=== PATIENT | female | born 1950 | race Caucasian/White ===

== ENCOUNTER 2017-01-31 06:43 | Day surgery (SDC) | payer OTHER, BC ==
[2017-01-31] VITALS (7 sets, daily range): BP systolic 83–123; BP diastolic 53–69; PULSE 67–81; RESP 13–20; TEMP 96.9–98.5; O2SAT 95–100; Ht 170.2 cm; Wt 75.3 kg
[~2017-01-31] VITALS: Ht 170.2 cm; Wt 75.3 kg
[~2017-01-31 06:43] MED LIST: ALLO100T PO; ASCO-296 PO; ASPI-558 PO; CETI10CA19 PO; CYAN250014 PO; DULA1.5P SQ; LEVO75TA10 PO; LIDOCAINE 1% (10mg/ml) 2ml SDV INJ ONE; LINA5TAB PO; LISI1TAB11 PO; LR 1,000 ML IV SCH; NEBI5TAB2 PO; OMEP20TA11 PO; PRAV40TA46 PO; PYRI100T61 PO
--- NOTE | 2017-01-31 07:19 | ANESPREOP ---
Anesthesia Record Date and Time DATE: 01/31/17 TIME: 07:18 Proposed Surgical Procedure COLNOSCOPY NPO since: mn Allergies: Coded Allergies: Sulfa (Sulfonamide Antibiotics) (Verified Allergy, Unknown, 12/29/08) Ht/Wt/BMI Height: 5 ' 7.00 " Weight: 75.300 kg BMI: 26.0 kg/m2 Vital Signs Date Time Temp Pulse Resp B/P Pulse Ox O2 Delivery O2 Flow Rate FiO2 01/31/17 06:59 98.5 81 13 123/69 95 Room Air Medications Inpatient Medications Current Medications Medications (Trade) Dose Ordered Sig/Ke Start Time Stop Time Status Last Admin Dose Admin Lactated Ringer's (Lactated Ringers) 1,000 ml @ 50 mls/hr Q20H 01/31/17 06:00 Allopurinol (Allopurinol) 100 Mg Tablet, 1 TAB PO DAILY, (Reported) Ascorbic Acid (Vitamin C) 500 Mg Tablet, 500 MG PO DAILY, (Reported) Aspirin (Aspir 81) 81 Mg Tablet.dr, 81 MG PO DAILY, (Reported) Cetirizine HCl (Zyrtec) 10 Mg Capsule, 1 CAP PO DAILY, (Reported) Cyanocobalamin (Vitamin B-12) (Vitamin B12) 2,500 Mcg Tab.chew, 1 TAB PO DAILY, (Reported) Dulaglutide (Trulicity) 1.5 Mg/0.5 Ml Pen.injctr, 1 DOSE SQ 1 WEEK, (Reported) Levothyroxine Sodium (Levothyroxine Sodium) 75 Mcg Tablet, 75 MCG PO ACB, ( Reported) Once daily before breakfast. Linagliptin (Tradjenta) 5 Mg Tablet, 1 TAB PO DAILY, (Reported) Lisinopril/Hydrochlorothiazide (Lisinopril-Hctz 20-12.5 mg Tab) 1 Each Tablet, 1 TAB PO DAILY, (Reported) Nebivolol Hcl (Bystolic) 5 Mg Tablet, 5 MG PO DAILY, (Reported) Omeprazole Magnesium (Prilosec Otc) 20 Mg Tablet.dr, 40 MG PO DAILY, (Reported) Pravastatin Sodium (Pravastatin Sodium) 40 Mg Tablet, 40 MG PO DAILY, (Reported) Pyridoxine Hcl (Vitamin B-6) 100 Mg Tablet, 100 MG PO DAILY, (Reported) Discontinued Medications Levothyroxine Sodium (Synthroid) 88 Mcg Tablet, 88 MCG PO DAILY, (Reported) Lisinopril (Lisinopril) 10 Mg Tablet, 12.5 MG PO BID, (Reported) Currently on Beta Jennifer: Yes Beta Jennifer Last Taken: 01/30/17 @ 1999 Medical/Surgical History Anesthesia PMH: Reports: *Diabetes (TYPE 2), *Hypertension, Anesthesia Reactions (NAUSEA), Arthritis (FINGERS), 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29), Reflux (TAKES PRILOSEC), Thyroid Disease (HYPOTHYROID) Smoking Status: Never smoker Use Chewing Tobacco?: No Second Hand Exposure: No Substance Use Type: does not use Alcohol Intake: none HX of Last Menstrual Period: HYST Past Surgical History Orthopedic Surgeries: Yes - NAYA CTR; ULNAR NERVE TRANSPOSITION NAYA Abdominal Surgeries: Yes - OPEN GAURAV; APPY Genitourinary Surgeries: No Cardiac Surgeries: No Endocrine Surgeries: No Reproductive Surgeries: Yes - D&C x2, LOU/BSO; HYSTEROSCOPY Neurological Surgeries: No Ear Surgeries: No Nose Surgeries: No Throat Surgeries: No Other Surgeries: Yes - ORAL, IMBEDDED TEETH REMOVED, NODULE REMOVED FROM THUMB; EGD/ COLONOSCOPY Anesthesia Adverse Reactions: FOUND nausea and vomiting Family Hx of Anesthesia Advers: none Hx of Motion Sickness: No Physical Exam Respiratory: Bilat breath sounds equal, Lungs clear Cardiovascular: FOUND Regular rate, rhythm Airway Assessment Mallampati Score: II TMD: 3 Fingerbreadths Neck Extension: Good Overall Assessment: No Airway Concerns ASA: 2 Plan Anesthesia Plan: TIVA, GETA Discussion Discussed risks/options/alternatives of anesthesia and questions answered. Patient consents. Nursing pain assessment noted. Attestation Statement Prior to the delivery of any anesthetic medication, I examined the patient, developed the plan, obtained the patient's consent and discussed the risk and benefits of the procedure with the patient/guardian. ZENON HAAS CRNA January 31, 2017 07:19
[2017-01-31] MEDS ORDERED: CALC1TAB PO (07:21)
[2017-01-31] MEDS ORDERED: SCOPOLAMINE 1.5 MG PATCH TD ONE (07:30)
[2017-01-31] MEDS ORDERED: PROPOFOL 500mg 50 ML IV ONE (08:55)
[2017-01-31] MEDS ORDERED: PROPOFOL 200mg 20 ML IV ONE (09:24)
--- NOTE | 2017-01-31 09:35 | GSPOSTPROC ---
Immediate Operative Note DATE: 01/31/17 TIME: 09:34 Postop Diagnosis: colon polyps Surgical Procedure: C-scope w/Polypectomy Surgeon: Davis ASA: 2 KOLTON KILLIAN MD January 31, 2017 09:35
--- NOTE | 2017-01-31 09:39 | ANESPO ---
Post-Op Note Date 01/31/17 Time: 09:38 Status Pt Participated in Evaluation: Pt participated in person Vital Signs Date Time Temp Pulse Resp B/P Pulse Ox O2 Delivery O2 Flow Rate FiO2 01/31/17 06:59 98.5 81 13 123/69 95 Room Air Respiratory Function: Airway patent, Regular respirations Cardiovascular Function: Regular pulse Mental Status: Alert/oriented Pain Level Intensity: 0 Hydration: IV infusing Complications during Recovery None apparent Follow-Up Instructions Instructions Per Surgeon ZENON HAAS CRNA January 31, 2017 09:39
--- NOTE | 2017-01-31 14:55 | OPNOTEF ---
DATE OF OPERATION 01/31/2017 PREOPERATIVE DIAGNOSES 1. Personal history of adenomatous colon polyps. 2. Internal and external hemorrhoids. 3. Chronic constipation. 4. Desire for screening for colon and rectal carcinoma. POSTOPERATIVE DIAGNOSES 1. Personal history of adenomatous colon polyps. 2. Internal and external hemorrhoids. 3. Chronic constipation. 4. Two colon polyps. OPERATION Total colonoscopy with polypectomy SURGEON Hiren Cannon MD ANESTHESIA TIVA ASA CLASS 2 FINDINGS There were no colon or rectal tumors. The patient did have two colon polyps. One of these polyps was located 100 cm proximal to the anal verge. This was at the proximal ascending colon. The other polyp was located 90 cm proximal to the anal verge. There were no colonic angiodysplasia lesions. There was no melanosis coli. There was no inflammatory bowel disease. There was no colonic diverticulosis. The patient does have some internal and external hemorrhoids.. DESCRIPTION OF OPERATION The patient was brought to the endoscopy room. The patient was placed on a cart in the endoscopy room. The patient was placed in left lateral recumbent position on the cart in the endoscopy room. The patient was premedicated with intravenous sedation medication administered by the nurse shirt closer. The Olympus colonoscope was used. The colonoscope was introduced into the rectum. The colonoscope was advanced up through the rectum and colon all the way up to the cecum. The appendiceal orifice was visualized. The ileocecal valve was visualized. The patient did have a polyp located 100 cm proximal to the anal verge. This was at the proximal ascending colon. This polyp was removed with several bites of the cold endoscopic biopsy forceps and submitted as a specimen for study by the pathologist. The colonoscope was withdrawn out through the colon. Another polyp was identified at a level 90 cm proximal to the anal verge. This polyp was removed with the electrocautery snare device and retrieved and submitted as a specimen for study by the pathologist. The colonoscope was then withdrawn the remainder of the way out through the colon and rectum and removed from the patient. Digital rectal examination was performed. Findings throughout procedure were as described above. The patient did continue to receive intravenous sedation medication administered by the nurse shirt closer throughout the operation. The patient did tolerate the operation well. GENET
[2017-02-03] MEDS ORDERED: SCOPOLAMINE PATCH REMOVAL TD SCH (07:30)
== END 2017-01-31 10:59 | disposition home or self-care (01) ==
LOC: SCU 06:43
PROVIDERS: ATTEND Surgery
DX: Z12.11 Encounter for screening for malignant neoplasm of colon (principal); D12.2 Benign neoplasm of ascending colon; D12.6 Benign neoplasm of colon, unspecified; Z86.010 Personal history of colon polyps; K64.8 Other hemorrhoids; K64.4 Residual hemorrhoidal skin tags; K59.09 Other constipation; E11.9 Type 2 diabetes mellitus without complications; J30.9 Allergic rhinitis, unspecified; E03.9 Hypothyroidism, unspecified; K21.9 Gastro-esophageal reflux disease without esophagitis; I10 Essential (primary) hypertension; E78.5 Hyperlipidemia, unspecified; Z79.82 Long term (current) use of aspirin; Z79.899 Other long term (current) drug therapy
CPT/HCPCS: 45380; 45385; 82948; J2704; J7120